=== PATIENT | female | born 1995 | race African-American/Black ===

== ENCOUNTER 2020-10-27 11:03 | Emergency (ER) | payer OTHER ==
[~2020-10-27] VITALS: Ht 167.6 cm; Wt 63.0 kg
[2020-10-27 11:46] VITALS: BP 134/72
== END 2020-10-27 12:10 | disposition home or self-care (01) ==
LOC: ER 11:03
DX: Z48.89 Encounter for other specified surgical aftercare (principal)
CPT/HCPCS: 99281

== ENCOUNTER 2021-09-11 20:23 | Emergency (ER) | payer OTHER ==
[~2021-09-11] VITALS: Ht 170.2 cm; Wt 75.8 kg
[2021-09-11 20:48] VITALS: BP 131/75
[2021-09-11] MEDS ORDERED: ONDANSETRON HCL 4MG/2ML INJ IV ONE (23:00)
[2021-09-11] MEDS ORDERED: FAMOTIDINE 20MG TABLET PO ONE (23:00)
[2021-09-11] MEDS ORDERED: SODIUM CHLORIDE 0.9% 1,000 ML IV ONE (23:00)
== END 2021-09-11 23:59 | disposition left against medical advice (07) ==
LOC: ER 20:23
DX: R11.2 Nausea with vomiting, unspecified (principal)
CPT/HCPCS: 99281; J7030

== ENCOUNTER 2023-03-24 15:35 | Emergency (ER) | payer MEDICAID, OTHER ==
[~2023-03-24] VITALS: Ht 167.6 cm; Wt 66.0 kg
[2023-03-24 15:38] VITALS: BP 111/73; PULSE 140; RESP 18; TEMP 98.4; O2SAT 100
== END 2023-03-24 16:35 | disposition home or self-care (01) ==
LOC: ER 15:35
DX: F41.9 Anxiety disorder, unspecified (principal); F12.10 Cannabis abuse, uncomplicated; I49.9 Cardiac arrhythmia, unspecified
CPT/HCPCS: 93005; 99283